=== PATIENT | female | born 1980 | race Caucasian/White ===

== ENCOUNTER 2016-09-07 11:06 | Emergency (ER) | payer MEDICAID ==
[~2016-09-07] VITALS: Ht 167.6 cm; Wt 90.0 kg
[2016-09-07 12:51] LABS: MEAN CORPUSCULAR HEMOGLOBIN 31.2 PG (26.0-34.0); MEAN CORPUSCULAR VOLUME 89 FL (80-100); MEAN PLATELET VOLUME 8.7 FL (6.0-9.5); PLATELET COUNT 429 10^3uL (150-450); WHITE BLOOD COUNT 10.87 10^3uL (4.0-11.0)
[2016-09-07 12:57] LABS: BAND NEUTROPHILS % 0 % (0-6); EOSINOPHILS % 2 % (0-4); LYMPHOCYTES # 3.1 #; MONOCYTES # 0.3 #; MONOCYTES % 3 % (3-11); RBC MORPH NORMAL (NORMAL); SEGMENTED NEUTROPHILS % 66 % (51-67); TOTAL CELLS COUNTED 100
[2016-09-07] MEDS ORDERED: LIDOCAINE PF 1% (XYLOCAINE) 30 ML VIAL INJ ONE (13:20)
[2016-09-07] MEDS ORDERED: LIDOCAINE 1% (XYLOCAINE) 20 ML VIAL ONE (13:29)
[2016-09-07] MEDS ORDERED: PROMETHAZINE 25 MG/ML (PHENERGAN) 1 ML VIAL IM ONE (13:40)
[2016-09-07] MEDS ORDERED: BACITRACIN OINTMENT 0.9 GM PACKET TOP ONE (13:40)
[2016-09-07] MEDS ORDERED: HYDROmorphone 1 MG/ML (DILAUDID) SYRINGE IM ONE (13:40)
[2016-09-07 14:05] VITALS: BP 125/56
[2016-09-07] MEDS ORDERED: LIDOCAINE 1% (XYLOCAINE) 20 ML VIAL INJ ONE (14:05)
== END 2016-09-07 14:07 | disposition home or self-care (01) ==
LOC: ED 11:07
DX: L03.221 Cellulitis of neck (principal); L98.9 Disorder of the skin and subcutaneous tissue, unspecified; F17.210 Nicotine dependence, cigarettes, uncomplicated
CPT/HCPCS: 10060; 36415; 85007; 85027; 96372; 99283; A9270; J1170; J2550

== ENCOUNTER → 2016-09-07 | Emergency (ER) | payer MEDICAID ==
[~2016-09-07] VITALS: Ht 167.6 cm; Wt 90.0 kg
[~2016-09-07] MED LIST: BELLADONNA/PHENOBARBITAL ELIXIR (DONNATAL) 10 ML UDC ONE; GI COCKTAIL 55 ML UDC PO ONE; LIDOCAINE 2% VISCOUS 20ML UDC PO ONE; MAG HYDROX/AL HYDROX/SIMETH 400-400-40/5 ML (MAG-AL PLUS XS) 30 ML UDC ONE
--- NOTE | 2016-09-07 15:12 | NUR ---
PT IS ACTUALLY 80 KG & THIS RN UNABLE TO CHG IT IN THE TRIAGE. CL
[2016-09-07 15:43] VITALS: BP 136/77
== END | disposition home or self-care (01) ==
LOC: ED 14:52
DX: R10.13 Epigastric pain (principal); F17.210 Nicotine dependence, cigarettes, uncomplicated
CPT/HCPCS: 99282; A9270